=== PATIENT | male | born 2000 | race Caucasian/White ===

== ENCOUNTER 2020-09-08 20:09 | Emergency (ER) | payer OTHER ==
[2020-09-08 20:40] LABS: HEMOGLOBIN 14.6 gm/dl (14.0-17.5); RED BLOOD COUNT 4.75 M/UL (4.20-5.50); WHITE BLOOD COUNT 9.3 K/UL (4.5-11.0)
[2020-09-08] MEDS ORDERED: PROTONIX 40 MG40 M1 PO (23:33)
[2020-09-08] MEDS ORDERED: US of Gall Bladder (23:33)
[2020-09-10 11:13] LABS: HBSAG SCREEN Negative (Negative); HEP A AB, IGM Negative (Negative); HEP B CORE AB, IGM Negative (Negative); HEP C VIRUS AB <0.1 (0.0-0.9)
== END 2020-09-09 00:14 | disposition home or self-care (01) ==
LOC: ER1 20:09
PROVIDERS: Family Medicine
DX: R10.11 Right upper quadrant pain (principal)
CPT/HCPCS: 71045; 80048; 80053; 80074; 81001; 82550; 82553; 83690; 84484; 85025; 99284

== ENCOUNTER → 2020-09-09 | Outpatient (CLI) | payer OTHER ==
[~2020-09-09] MED LIST: PROTONIX 40 MG40 M1 PO; US of Gall Bladder
== END ==
LOC: US 08:56
DX: R10.11 Right upper quadrant pain (principal)
CPT/HCPCS: 76705